=== PATIENT | male | born 1970 | race Caucasian/White ===

== ENCOUNTER 2021-10-24 23:08 | Inpatient (IN) | payer BC ==
[2021-10-24] MEDS ORDERED: Morphine 4 MG/ML VIAL ONE (23:56)
[2021-10-24] MEDS ORDERED: Ondansetron PF 4 MG/2 ML Vial ONE (23:56)
[2021-10-25] MEDS ORDERED: ceFAZolin 2 GM/DEX 5% 100 ML BAG ONE (00:42)
[2021-10-25] MEDS ORDERED: ceFAZolin Sodium/D5W 2 GM in Premix Bag 1 BAG IVPB SCH (00:45)
[2021-10-25] MEDS ORDERED: Protamine Sulfate 50 MG/5 ML VIAL ONE ×2 (00:48→03:19)
[2021-10-25] MEDS ORDERED: Protamine Sulfate 250 MG/25 ML VIAL ONE (00:48)
[2021-10-25] MEDS ORDERED: Heparin 5,000 UNITS/ML VIAL ONE (00:48)
[2021-10-25] MEDS ORDERED: Fentanyl 250 MCG/5 ML VIAL ONE (00:50)
[2021-10-25] MEDS ORDERED: Heparin 10,000 UNITS/ 10 ML VIAL ONE (00:51)
[2021-10-25] MEDS ORDERED: Phenylephrine 10 MG/ML VIAL ONE (01:13)
[2021-10-25] MEDS ORDERED: ePHEDrine 50 MG/ML VIAL ONE (01:13)
[2021-10-25] MEDS ORDERED: Lidocaine 1% PF 5 ML VIAL ONE (01:13)
[2021-10-25] MEDS ORDERED: PROPOFOL 200 MG/20 ML VIAL ONE (01:13)
[2021-10-25] MEDS ORDERED: Rocuronium Bromide 10 MG/ML (10ML VIAL) ONE (01:13)
[2021-10-25] MEDS ORDERED: Ondansetron PF 4 MG/2 ML Vial ONE (01:13)
[2021-10-25 01:32] LABS: SARS-CoV-2 NAA Rapid Test Not Detected (NotDetected)
[2021-10-25] MEDS ORDERED: Promethazine HCl 25 MG/ML VIAL IM PRN ×3 (03:37→04:38)
[2021-10-25] MEDS ORDERED: fentaNYL Citrate/PF 2,000 MCG in Sodium Chloride 0.9% 60 ML IV PRN (03:37)
[2021-10-25] MEDS ORDERED: Naloxone HCl 0.4 mg/ml Vial IV PRN (03:37)
[2021-10-25] MEDS ORDERED: diphenhydrAMINE 25 MG CAP PO PRN (03:37)
[2021-10-25] MEDS ORDERED: diphenhydrAMINE 50 MG/ML VIAL IVP PRN (03:37)
[2021-10-25] MEDS ORDERED: Zolpidem Tartrate 5 MG TAB PO PRN (03:37)
[2021-10-25] MEDS ORDERED: Ondansetron PF 4 MG/2 ML Vial IVP PRN (03:37)
[2021-10-25] MEDS ORDERED: diphenhydrAMINE 50 MG/ML VIAL IM PRN (03:37)
[2021-10-25] MEDS ORDERED: Communication Order-Pharmacy FS SCH (03:45)
[2021-10-25] MEDS ORDERED: SUGAMMADEX SODIUM 200 MG/2 ML VIAL ONE (03:58)
[2021-10-25] MEDS ORDERED: traMADol HCl 50 MG TAB PO PRN ×2 (04:38)
[2021-10-25] MEDS ORDERED: Acetaminophen 325 MG TAB PO PRN (04:38)
[2021-10-25] MEDS ORDERED: Lorazepam 2 MG/ML VIAL SLOW IVP PRN (04:38)
[2021-10-25] MEDS ORDERED: ceFAZolin 2 GM/Dextrose 50 ML 2 GM in Premix Bag 1 BAG IVPB SCH (04:38)
[2021-10-25] MEDS: hydrALAZINE 20 MG/ML VIAL SLOW IVP PRN ×4 (05:10→22:49)
[2021-10-25] MEDS: Sodium Chloride 0.9% 1,000 ML IV SCH ×3 (05:31→18:30)
[2021-10-25] MEDS: D5 1/2 NS w/20 mEq KCL 1,000 ML IV SCH ×3 (05:32→22:57)
[2021-10-25] MEDS: ceFAZolin Sodium/D5W 2 GM in Premix Bag 1 BAG IVPB SCH ×3 (05:44→21:02)
[2021-10-25 07:48] LABS: #Basophils 0.1 thou/uL (0.0-0.2); #Eosinphils 0.1 thou/uL (0.0-0.7); #Lymphocytes 1.9 thou/uL (1.20-3.40); #Monocytes 0.8 thou/uL (0.11-0.59); #Neutrophils 13.8 thou/uL (1.40-6.50); %Basophils 0.3 % (0.0-1.0); %Eosinophils 0.4 % (0.0-10.0); %Lymphocytes 11.7 % (21.0-51.0); %Monocytes 4.6 % (0.0-10.0); Hemoglobin 13.6 g/dL (14.0-18.0); Mean Corpuscular HGB CONC 34.1 g/dL (32.0-36.0); Mean Corpuscular Hemoglobin 34.3 pg (27.0-31.0); Mean Platelet Volume 8.2 fL (7.4-10.4); Platelet Count 225 thou/uL (130-400); RBC Distribution Width 12.7 % (11.5-14.5); Red Blood Cell (RBC) Count 3.97 mill/uL (4.70-6.10); White Blood Cell (WBC) Count 16.6 thou/uL (4.8-10.8)
[2021-10-25] MEDS: Metoprolol Tartrate 25 MG TAB PO SCH ×2 (08:06→21:02)
[2021-10-25] MEDS: Aspirin Chewable 81 MG TAB PO SCH (08:06)
[2021-10-25 08:09] LABS: Anion Gap 11 mmol/L (10-20); BUN (Urea Nitrogen) 13 mg/dL (8.4-25.7); Calc. Creatinine Clearance 81 mL/min (70-130); Calcium 8.4 mg/dL (7.8-10.44); Carbon Dioxide 24 mmol/L (22-29); Chloride 105 mmol/L (98-107); Glucose 161 mg/dL (70-105); Potassium 3.9 mmol/L (3.5-5.1); Sodium 136 mmol/L (136-145)
[2021-10-25] MEDS: HYDROcodone/Acetaminophen 5/325 mg Tablet PO PRN (09:35)
[2021-10-25] MEDS: BEER 1 CAN PO SCH ×2 (12:50→18:30)
[2021-10-25] MEDS: Ondansetron PF 4 MG/2 ML Vial IVP PRN (16:21)
[2021-10-26] MEDS: Sodium Chloride 0.9% 1,000 ML IV SCH ×3 (01:05→20:21)
[2021-10-26 05:13] LABS: Band 5 % (5-11); Hemoglobin 13.7 g/dL (14.0-18.0); Lymphocytes 10 % (21-51); MDiff Complete? YES; Mean Corpuscular HGB CONC 33.3 g/dL (32.0-36.0); Mean Corpuscular Hemoglobin 33.6 pg (27.0-31.0); Mean Platelet Volume 8.6 fL (7.4-10.4); Monocytes 4 % (0-10); Neutrophil 81 % (42-75); Platelet Count 232 thou/uL (130-400); Platelet Morphology Comment Appears Adequate; RBC Distribution Width 12.6 % (11.5-14.5); Red Blood Cell (RBC) Count 4.07 mill/uL (4.70-6.10); White Blood Cell (WBC) Count 20.2 thou/uL (4.8-10.8)
[2021-10-26 05:20] LABS: Anion Gap 11 mmol/L (10-20); BUN (Urea Nitrogen) 9 mg/dL (8.4-25.7); Calc. Creatinine Clearance 108 mL/min (70-130); Calcium 8.7 mg/dL (7.8-10.44); Carbon Dioxide 24 mmol/L (22-29); Chloride 103 mmol/L (98-107); Glucose 113 mg/dL (70-105); Sodium 134 mmol/L (136-145)
[2021-10-26 06:15] VITALS: BMI 25.7
[2021-10-26] MEDS: Aspirin Chewable 81 MG TAB PO SCH (08:16)
[2021-10-26] MEDS: Metoprolol Tartrate 50 MG TAB PO SCH ×2 (08:16→21:24)
[2021-10-26] MEDS: hydrALAZINE 20 MG/ML VIAL SLOW IVP PRN (09:21)
[2021-10-26] MEDS ORDERED: cloNIDine 0.2mg/24 Hour PATCH TD SCH (11:00)
[2021-10-26 12:41] LABS: Actual Bicarbonate (HCO3a) 23.3 mEq/L (22-28); Analyzer IN Cardio OR; Base Excess (BEa) -2.2 mEq/L (-2.0 to +3.0); CO2 Tension 42.6 mmHg (35.0-45.0); Calcium, Ionized (arterial) 1.09 mmol/L (1.12-1.30); Carboxyhemoglobin (COHb) 1.4 gm% (0.0-3.0); O2 Tension (PaO2), arterial 183.7 mmHg (80.0-100.0); Potassium - ABG Lab 3.97 mmol/L (3.70-5.30); Puncture Site Arterial Line; pH, Arterial 7.36 (7.35-7.45)
[2021-10-26] MEDS: BEER 1 CAN PO SCH ×2 (12:55→21:24)
[2021-10-26] MEDS: Ondansetron PF 4 MG/2 ML Vial IVP PRN (21:24)
[2021-10-27] MEDS: BEER 1 CAN PO SCH ×3 (00:18→17:56)
[2021-10-27] MEDS: Ondansetron PF 4 MG/2 ML Vial IVP PRN ×2 (06:22→17:17)
[2021-10-27] MEDS: Sodium Chloride 0.9% 1,000 ML IV SCH (08:09)
[2021-10-27] MEDS: Polyethylene Glycol 3350 17 GM Packet PO SCH (09:38)
[2021-10-27] MEDS: Metoprolol Tartrate 50 MG TAB PO SCH ×2 (09:38→20:38)
[2021-10-27] MEDS: Aspirin Chewable 81 MG TAB PO SCH (09:38)
[2021-10-27] MEDS: Lactated Ringer's 1,000 ML IV SCH (09:38)
[2021-10-27] MEDS: HYDROcodone/Acetaminophen 5/325 mg Tablet PO PRN ×2 (12:27→20:37)
[2021-10-28] MEDS: HYDROcodone/Acetaminophen 5/325 mg Tablet PO PRN ×5 (02:20→21:01)
[2021-10-28] MEDS: Lactated Ringer's 1,000 ML IV SCH (05:40)
[2021-10-28 08:16] LABS: #Eosinphils 0.3 thou/uL (0.0-0.7); #Lymphocytes 1.9 thou/uL (1.20-3.40); #Monocytes 1.1 thou/uL (0.11-0.59); #Neutrophils 9.7 thou/uL (1.40-6.50); %Basophils 0.2 % (0.0-1.0); %Eosinophils 2.3 % (0.0-10.0); %Lymphocytes 14.5 % (21.0-51.0); %Monocytes 8.7 % (0.0-10.0); %Neutrophils 74.3 % (42.0-75.0); Hemoglobin 13.9 g/dL (14.0-18.0); Mean Corpuscular HGB CONC 35.1 g/dL (32.0-36.0); Mean Corpuscular Hemoglobin 34.6 pg (27.0-31.0); Mean Corpuscular Volume 98.7 fL (78.0-98.0); Mean Platelet Volume 8.2 fL (7.4-10.4); Platelet Count 230 thou/uL (130-400); RBC Distribution Width 12.3 % (11.5-14.5); Red Blood Cell (RBC) Count 4.02 mill/uL (4.70-6.10)
[2021-10-28 08:47] LABS: Anion Gap 10 mmol/L (10-20); BUN (Urea Nitrogen) 15 mg/dL (8.4-25.7); Calc. Creatinine Clearance 116 mL/min (70-130); Calcium 9.1 mg/dL (7.8-10.44); Carbon Dioxide 27 mmol/L (22-29); Chloride 100 mmol/L (98-107); Glucose 105 mg/dL (70-105); Potassium 3.5 mmol/L (3.5-5.1); Sodium 133 mmol/L (136-145)
[2021-10-28] MEDS: Polyethylene Glycol 3350 17 GM Packet PO SCH (09:28)
[2021-10-28] MEDS: Metoprolol Tartrate 50 MG TAB PO SCH ×2 (09:28→21:01)
[2021-10-28] MEDS: Aspirin Chewable 81 MG TAB PO SCH (09:28)
[2021-10-28] MEDS: BEER 1 CAN PO SCH ×3 (13:08→18:27)
[2021-10-28] MEDS: hydrALAZINE 20 MG/ML VIAL SLOW IVP PRN (23:32)
[2021-10-29] MEDS: HYDROcodone/Acetaminophen 5/325 mg Tablet PO PRN ×4 (01:14→16:26)
[2021-10-29] MEDS: Lactated Ringer's 1,000 ML IV SCH (01:15)
[2021-10-29] MEDS: hydrALAZINE 20 MG/ML VIAL SLOW IVP PRN ×3 (05:22→21:01)
[2021-10-29] MEDS: Polyethylene Glycol 3350 17 GM Packet PO SCH (09:27)
[2021-10-29] MEDS: Aspirin Chewable 81 MG TAB PO SCH (09:32)
[2021-10-29] MEDS: Metoprolol Tartrate 50 MG TAB PO SCH ×2 (09:33→21:01)
[2021-10-29] MEDS: Ondansetron PF 4 MG/2 ML Vial IVP PRN ×2 (12:23→20:20)
[2021-10-29] MEDS: BEER 1 CAN PO SCH ×2 (13:55→17:49)
[2021-10-30] MEDS: HYDROcodone/Acetaminophen 5/325 mg Tablet PO PRN ×2 (00:31→07:45)
[2021-10-30] MEDS: Lactated Ringer's 1,000 ML IV SCH (03:17)
[2021-10-30] MEDS: hydrALAZINE 20 MG/ML VIAL SLOW IVP PRN (03:23)
[2021-10-30] MEDS: Metoprolol Tartrate 50 MG TAB PO SCH (07:45)
[2021-10-30] MEDS: Aspirin Chewable 81 MG TAB PO SCH (07:45)
[2021-10-30] MEDS: Polyethylene Glycol 3350 17 GM Packet PO SCH (07:47)
[2021-10-30 08:17] VITALS: BP 205/98; TEMP 97.6
== END 2021-10-30 09:30 | disposition home or self-care (01) | DRG 271 ==
LOC: ERS 23:08 → SDC/OP 10-25 01:25 → CCU 10-25 04:04 → NEURO 10-26 09:09
PROVIDERS: ADMIT Thoracic Surgery (Cardiothoracic Vascular Surgery); ATTEND Thoracic Surgery (Cardiothoracic Vascular Surgery)
PROC: 04100JH Bypass Abdominal Aorta to Right Femoral Artery with Synthetic Substitute, Open Approach (ICD-10-PCS; principal; 2021-10-25)
PROC: 05H533Z Insertion of Infusion Device into Right Subclavian Vein, Percutaneous Approach (ICD-10-PCS; 2021-10-25)
DX: I74.09 Other arterial embolism and thrombosis of abdominal aorta (principal); F17.210 Nicotine dependence, cigarettes, uncomplicated; K56.7 Ileus, unspecified; Z20.822 Contact with and (suspected) exposure to COVID-19; I10 Essential (primary) hypertension; E87.6 Hypokalemia
CPT/HCPCS: 36415; 36416; 71045; 75635; 80048; 82805; 85025; 86850; 86900; 86901; 88305; 96365; 96375; C1751; C1776; C1889; J0360; J1644; J2270; J2370; J2405; J2704; J2720; J3010; J3480; J3490; J7050; J7120; U0002

== ENCOUNTER 2022-04-19 17:43 | Emergency (ER) | payer BC, SELFPAY ==
[2022-04-19] MEDS ORDERED: CEFAZOLIN 2 GM VIAL ONE (18:37)
[2022-04-19] MEDS ORDERED: Lidocaine 1% PF 5 ML VIAL ONE ×2 (19:39→19:40)
[2022-04-19] MEDS ORDERED: Lidocaine 1% w/Epinephrine 1:100K 20 ML VIAL ONE (20:14)
[2022-04-19 21:54] LABS: #Basophils 0.1 thou/uL (0.0-0.2); #Eosinphils 0.5 thou/uL (0.0-0.7); #Lymphocytes 3.8 thou/uL (1.20-3.40); #Neutrophils 6.8 thou/uL (1.40-6.50); %Basophils 0.9 % (0.0-1.0); %Lymphocytes 31.5 % (21.0-51.0); %Monocytes 7.9 % (0.0-10.0); %Neutrophils 55.8 % (42.0-75.0); Hemoglobin 13.3 g/dL (14.0-18.0); Mean Corpuscular HGB CONC 31.4 g/dL (32.0-36.0); Mean Corpuscular Hemoglobin 31.5 pg (27.0-31.0); Mean Platelet Volume 8.6 fL (7.4-10.4); Platelet Count 232 thou/uL (130-400); RBC Distribution Width 13.5 % (11.5-14.5); Red Blood Cell (RBC) Count 4.24 mill/uL (4.70-6.10); White Blood Cell (WBC) Count 12.2 thou/uL (4.8-10.8)
[2022-04-19 22:07] LABS: ALT (SGPT) 20 U/L (8-55); AST (SGOT) 37 U/L (5-34); Albumin 3.7 g/dL (3.5-5.0); Alkaline Phosphatase 104 U/L (40-110); Anion Gap 18 mmol/L (10-20); BUN (Urea Nitrogen) 19 mg/dL (8.4-25.7); Bilirubin, Total 0.8 mg/dL (0.2-1.2); Calc. Creatinine Clearance 0 mL/min (70-130); Calcium 8.7 mg/dL (7.8-10.44); Carbon Dioxide 21 mmol/L (22-29); Chloride 106 mmol/L (98-107); Estimated GFR 68; Glucose 89 mg/dL (70-105); Potassium 4.9 mmol/L (3.5-5.1); Protein, Total 6.7 g/dL (6.0-8.3); Sodium 140 mmol/L (136-145)
== END 2022-04-19 23:03 | disposition home or self-care (01) ==
LOC: ERS 17:43
DX: S01.01XA Laceration without foreign body of scalp, initial encounter (principal); S61.412A Laceration without foreign body of left hand, initial encounter; S41.011A Laceration without foreign body of right shoulder, initial encounter; F17.210 Nicotine dependence, cigarettes, uncomplicated; X99.1XXA Assault by knife, initial encounter
CPT/HCPCS: 12005; 36415; 70450; 71045; 72125; 80053; 85025; 96374; J0690

== ENCOUNTER 2024-03-01 00:28 | Inpatient (IN) | payer SELFPAY ==
[2024-03-02 00:54] VITALS: BMI 28.5
[2024-03-02 01:04] LABS: Hematocrit 41.6 % (42.0-52.0); Hemoglobin 13.7 g/dL (14.0-18.0); Platelet Count 196 10x3/uL (130-400)
[2024-03-02] MEDS ORDERED: Acetaminophen 650 MG Suppository PR PRN (01:15)
[2024-03-02] MEDS ORDERED: Ondansetron ODT 4 MG TAB PO PRN (01:15)
[2024-03-02] MEDS ORDERED: Ondansetron PF 4 MG/2 ML Vial IVP PRN (01:15)
[2024-03-02] MEDS: Heparin 25,000 units/D5W 500 ML IVPB SCH (02:26)
[2024-03-02] MEDS: Morphine 4 MG/ML VIAL SLOW IVP PRN (05:59)
[2024-03-02 06:24] LABS: #Basophils 0.06 10x3/uL (0.0-0.2); %Basophils 0.6 % (0.0-1.0); %Eosinophils 3.9 % (0.0-10.0); %Lymphocytes 26.1 % (21.0-51.0); %Monocytes 6.6 % (0.0-10.0); %Neutrophils 62.4 % (42.0-75.0); Hematocrit 39.6 % (42.0-52.0); Hemoglobin 13.3 g/dL (14.0-18.0); Mean Corpuscular HGB CONC 33.6 g/dL (32.0-36.0); Mean Corpuscular Hemoglobin 32.4 pg (27.0-31.0); Mean Corpuscular Volume 96.6 fL (78.0-98.0); Mean Platelet Volume 10.6 fL (7.4-10.4); Platelet Count 189 10x3/uL (130-400)
[2024-03-02 06:40] LABS: Anion Gap 11 mmol/L (10-20); BUN (Urea Nitrogen) 13 mg/dL (8.4-25.7); Calc. Creatinine Clearance 107 mL/min (70-130); Calcium 8.5 mg/dL (7.8-10.44); Carbon Dioxide 22 mmol/L (22-29); Chloride 108 mmol/L (98-107); Estimated GFR 81; Glucose 92 mg/dL (70-105); Potassium 4.3 mmol/L (3.5-5.1); Sodium 137 mmol/L (136-145)
[2024-03-02] MEDS: Heparin 10,000 UNITS/ 10 ML VIAL SLOW IVP SCH (10:25)
[2024-03-02] MEDS: Acetaminophen 325 MG TAB PO PRN (18:45)
[2024-03-02] MEDS: Clopidogrel Bisulfate 75 MG TAB PO SCH (21:25)
[2024-03-03 07:53] VITALS: TEMP 97.6
[2024-03-03] MEDS: HYDROcodone/Acetaminophen 5/325 mg Tablet PO PRN (08:15)
[2024-03-03] MEDS: Amlodipine 10 MG TAB PO SCH (10:48)
[2024-03-03 11:34] VITALS: BP 161/73
[2024-03-03] MEDS ORDERED: Aspirin 81 mg Enteric Coated Tablet PO SCH (21:00)
[2024-03-04] MEDS ORDERED: Amlodipine 5 MG TAB PO SCH (09:00)
== END 2024-03-03 12:19 | disposition home or self-care (01) | DRG 300 ==
LOC: MSONC 03-02 00:45 → INTOOBSV 03-02 00:45 → MSONC 03-02 11:40 → OBSVTOIN 03-02 12:04
PROVIDERS: ADMIT Student in an Organized Health Care Education/Training Program; ATTEND Internal Medicine
DX: I73.9 Peripheral vascular disease, unspecified (principal); I75.022 Atheroembolism of left lower extremity; K74.60 Unspecified cirrhosis of liver; F17.210 Nicotine dependence, cigarettes, uncomplicated; Z98.890 Other specified postprocedural states; Z71.6 Tobacco abuse counseling
CPT/HCPCS: 36415; 80048; 85014; 85018; 85025; 85049; 85730; J1644; J2270

== ENCOUNTER 2024-03-07 13:29 | Inpatient (IN) | payer SELFPAY ==
[~2024-03-07 13:29] MED LIST: Iopamidol-370 76% 500 ML MDV (1 ML CHARGE) ONE
[2024-03-07] MEDS ORDERED: Morphine 4 MG/ML VIAL ONE ×2 (14:45→16:42)
[2024-03-07] MEDS ORDERED: HYDROcodone/Acetaminophen 5/325 mg Tablet PO PRN (19:21)
[2024-03-07] MEDS ORDERED: Senokot S 8.6-50 MG TAB PO PRN (19:21)
[2024-03-07] MEDS ORDERED: Ondansetron ODT 4 MG TAB PO PRN (19:21)
[2024-03-07] MEDS: Aspirin 81 mg Enteric Coated Tablet PO SCH (19:33)
[2024-03-07 20:38] VITALS: BMI 29.0
[2024-03-07] MEDS: HYDROcodone/Acetaminophen 5/325 mg Tablet PO PRN (20:45)
[2024-03-08] MEDS ORDERED: fentaNYL PF 100 MCG/2 ML SYRINGE ONE (07:14)
[2024-03-08] MEDS ORDERED: PROPOFOL 20 ML ONE (07:14)
[2024-03-08] MEDS ORDERED: Midazolam HCl 2 mg/2 ml Vial ONE (07:14)
[2024-03-08] MEDS ORDERED: Ondansetron PF 4 MG/2 ML Vial ONE (07:29)
[2024-03-08] MEDS ORDERED: Bupivacaine PF 0.5% 30 ML VIAL ONE (07:38)
[2024-03-08] MEDS ORDERED: Sodium Chloride 0.9% 100 ML ONE (07:54)
[2024-03-08] MEDS ORDERED: CEFAZOLIN 2 GM VIAL ONE (07:54)
[2024-03-08] MEDS ORDERED: CEFAZOLIN 2 GM in Sodium Chloride 0.9% 100 ML IVPB SCH (08:00)
[2024-03-08] MEDS ORDERED: Ondansetron HCl/PF 4 MG/2 ML Vial IVP PRN (08:17)
[2024-03-08] MEDS ORDERED: Promethazine HCl 25 MG/ML VIAL IM PRN (08:17)
[2024-03-08] MEDS ORDERED: fentaNYL 50 mcg/mL 1 mL Vial SLOW IVP PRN ×2 (08:21)
[2024-03-08] MEDS: Sulfameth/Trimethoprim DS 800-160mg TAB PO SCH (10:45)
[2024-03-08] MEDS: Amlodipine 5 MG TAB PO SCH (10:45)
[2024-03-09] MEDS: Clopidogrel Bisulfate 75 MG TAB PO SCH (08:16)
[2024-03-10 08:11] VITALS: BP 158/82; TEMP 97.8
== END 2024-03-10 10:45 | disposition home or self-care (01) | DRG 240 ==
LOC: ERS 13:29 → SURG A 17:10
PROVIDERS: ADMIT Thoracic Surgery (Cardiothoracic Vascular Surgery); ATTEND Thoracic Surgery (Cardiothoracic Vascular Surgery)
PROC: 0Y6N0ZB Detachment at Left Foot, Partial 2nd Ray, Open Approach (ICD-10-PCS; principal; 2024-03-08)
DX: I96 Gangrene, not elsewhere classified (principal); M87.878 Other osteonecrosis, left toe(s); I70.222 Atherosclerosis of native arteries of extremities with rest pain, left leg; I10 Essential (primary) hypertension; F10.90 Alcohol use, unspecified, uncomplicated; R23.0 Cyanosis; Z98.890 Other specified postprocedural states; Z79.82 Long term (current) use of aspirin; Z79.899 Other long term (current) drug therapy
CPT/HCPCS: 75635; 88305; 88311; 96374; 96376; J0665; J2250; J2270; J2405; J2704; J3490; Q9967